=== PATIENT | female | born 1980 | race American Indian/Alaskan Native ===

== ENCOUNTER 2018-07-09 00:20 | Emergency (ER) | payer MEDICAID ==
--- NOTE | 2018-07-09 15:15 | OBDCSUM ---
Datetime: 07/09/2018 14:09 Discharged to, Provider: Home Follow up at, Provider: OBGYN Disch Instr Activity: Normal activity Disch Instr Diet: Regular Discharge Time: 07/09/2018 14:00 Follow up in weeks, Provider: next scheduled appt 07/19 Disch Referrals: None Disch Activity Restrictions: No sexual activity
--- NOTE | 2018-07-09 15:15 | OBHP ---
Datetime: 07/09/2018 14:00 IP Adm Impression: , intrauterine ; No Active Labor; Intact Membranes IP Admit Plan: Discharge home Admit Comment, IP Provider: 38yo 202 IUP 19w (EDC Nov 28) PMD in [facility]...c/ o suprapubic discomfort for a few days. No CTX; no VB PNC: PMD in [facility] - no complications ex UTI for which u.rine culture was taken/ given Cephalexi n which she is taking POBH: x 2 no labor/delivery PMH: denies PSH: abd surgery - tummy tuck NKA PSoH: deneis smoking ETOH drugs A: IUP at 19w cx closed UTI PLAN check UA repeat urine culture Condition explained to pt. Her questions answer alled. No intercourse, rest, PO fluids...follow p with her PMD in 1-2w will call with resutls Abdomen - PN: Normal Back - PN: Normal Thyroid - PN: Normal Neurologic - PN: Normal HEENT - PN: Normal General - PN: Normal Membranes, Provider: Intact Pool Provider: Negative EGA AdmitDate IP: 19.5 IP Chief Complaint: Other Dilatation, Provider: 0 Genitourinary Exam: Normal
== END 2018-07-09 01:15 | disposition home or self-care (01) ==
LOC: H.EROB2 00:20
DX: Z02.89 Encounter for other administrative examinations (principal)

== ENCOUNTER 2018-07-09 13:45 | Emergency (ER) | payer MEDICAID ==
[2018-07-09 14:01] VITALS: BMI 35.0
[2018-07-09 14:44] LABS: SQUAMOUS EPITHIAL 1 /hpf (0-5); URINE BACTERIA RARE (<OCC); URINE BILIRUBIN NEGATIVE (NEGATIVE); URINE BLOOD NEGATIVE (NEGATIVE); URINE CLARITY SLIGHTY-CLOUDY (Clear); URINE COLOR YELLOW (YELLOW); URINE GLUCOSE (UA) NEG (NEGATIVE); URINE LEUKOCYTE ESTERASE NEG Leu/uL (Negative); URINE PROTEIN NEGATIVE (NEGATIVE); URINE UROBILINOGEN 0.2-1.0 mg/dL (0.2-1.0)
== END 2018-07-09 15:50 | disposition home or self-care (01) ==
LOC: H.EROB2 13:45 → H.L&D 13:46 → H.EROB2 15:50
DX: O26.92 Pregnancy related conditions, unspecified, second trimester (principal); R10.2 Pelvic and perineal pain; Z3A.19 19 weeks gestation of pregnancy

== ENCOUNTER 2018-07-22 13:44 | Emergency (ER) | payer MEDICAID ==
[2018-07-22 14:27] VITALS: BMI 34.5
[2018-07-22 15:09] LABS: SQUAMOUS EPITHIAL < 1 /hpf (0-5); URINE BACTERIA RARE (<OCC); URINE BILIRUBIN NEGATIVE (NEGATIVE); URINE BLOOD NEGATIVE (NEGATIVE); URINE CLARITY CLEAR (Clear); URINE COLOR YELLOW (YELLOW); URINE GLUCOSE (UA) NEG (NEGATIVE); URINE LEUKOCYTE ESTERASE NEG Leu/uL (Negative); URINE PROTEIN NEGATIVE (NEGATIVE); URINE UROBILINOGEN 0.2-1.0 mg/dL (0.2-1.0)
--- NOTE | 2018-07-22 15:56 | OBHP ---
Datetime: 07/22/2018 14:39 IP Adm Impression: , intrauterine IP Admit Plan: Observation/Evaluation; Discharge home Admit Comment, IP Provider: Pt is a 38 y/o AMA, F EGA of 21.4 wk JAY 11/28/18 LMP 02/21/18. P atient reports LLQ pain since yesterday, had a UTI 2weeks ago was treated with cephalexin for 7days c ompleted the treatment but started feeling pain come back, pt reports increased frequency, chills yes terday, denies dysuria or hematuria. Also reports mid lumbosacral pressure, constipation. Denies vagi nal bleeding, contractions, or LOF. Reports good movement. Denies fever, headaches, blurry visi on, SOB, chest pain, dizziness, N/V, or diarrhea. Provider: Dr. Diane Gilbert PMHx: Hx of recurrent UTI's Meds: PNV FMHx: Parents DM, HTN, no hx of DM or HTN in Allergies: NKDA SurgHx: Tummy tuck 2007 SOCHx: Denies EthOH, tobacco, or drug use OBGYN: Hx of chlamydia dx in 2009 treated, no TRAVON record AMA, No complications with , Last pap this year reports negative 1 spontanous 2014 2 2012, 2003 Labs: reports wnl, no records with her Assessment Pt is a 38 y/o AMA, F EGA of 21.4 wk here due to LLQ pain increased frequency, likely roun d ligament pain Plan: -Observe in [place] -Monitor VS WNL -Monitor FHR tracing 150's, moderate variability, 10x10 accelerations, no decels -Sent U/A, Urine culture Case reviewed and discussed with Dr. Adriel Hager PGY1 OB Hospitalist Addendum: Pt seen and examined by me. Agree a/ above. 38 yo at 21+4 wks w / LLQ pain that occurred suddenly around 3am when she was getting up from lying on her left side. Pt reports that she feels sore in LLQ. Pt reports feeling abdominal pressure and low back pressure merari t isn't new. No suprapubic or CVA tenderness on exam. Cx is closed/ long and high. No ctxns seen on tocodynamometer. Ua neg except rare bacteria. Urine cx pending. Pt discharged home, likely has round ligament pain. Rec that she try a maternal band for support. (ES ) Extremities - PN: Normal Abdomen - PN: Normal Lungs - PN: Normal Heart - PN: Normal Neurologic - PN: Normal HEENT - PN: Normal General - PN: Normal FHR - Baseline A Provider: 150 Comments, ACOG Physical Exam: GEN: Lying in bed NAD HEENT: NCAT CARD: RRR + S1S2 RESP: CTA, no wheezing, rales or rhonchi GI: Gravid, + BS, nontender to palpation, no rebound, no guarding, no rigidity Back- No CVA tenderness, mid lumbosacral tenderness to palpation EXT: no edema, no calf tenderness Monitor FHR tracing 150's, moderate variability, 10x10, category 1 IP Hx Assessment: The History has been Reviewed and is Current EGA AdmitDate IP: 21.4 Vital Signs Provider: Reviewed; Within Normal Limits IP Chief Complaint: Signs/symptoms UTI NICHD Variability Prov Fetus A: Moderate 6-25bpm NICHD Accel Fetus A IP Provider: 10X10 FHR Category Provider Fetus A: Category I NICHD Decel Fetus A IP Provider: None Genitourinary Exam: Normal
--- NOTE | 2018-07-22 15:59 | OBDCSUM ---
Datetime: 07/22/2018 15:29 Discharged to, Provider: Home Follow up at, Provider: Private Disch Instr Activity: Normal activity Disch Instr Diet: Regular Discharge Time: 07/22/2018 12:45 Follow up in weeks, Provider: Next scheduled appointment Disch Referrals: None Discharge Diagnosis Prov Other: LLQ pain at 1+ weeks
[2018-07-23 00:18] VITALS: BP 98/55; PULSE 88; RESP 30; TEMP 98.2; O2SAT 99
== END 2018-07-22 15:40 | disposition home or self-care (01) ==
LOC: H.EROB2 13:44
DX: O26.92 Pregnancy related conditions, unspecified, second trimester (principal); R10.2 Pelvic and perineal pain; R35.0 Frequency of micturition; Z3A.21 21 weeks gestation of pregnancy

== ENCOUNTER 2018-10-07 15:45 | Emergency (ER) | payer MEDICAID ==
[2018-10-07 16:54] VITALS: BMI 35.2
[2018-10-07 17:50] LABS: BASO % 0.1 % (0.0-2.0); EOS # 0.1 K/uL (0.0-0.7); EOS % 0.7 % (0.0-4.0); HEMOGLOBIN 10.9 g/dL (12.0-16.0); LYMPH # 2.1 K/uL (1.0-4.3); LYMPH % 22.8 % (20.0-40.0); MEAN CELL VOLUME 87.8 fl (81.0-99.0); MEAN CORPUSCULAR HEMOGLOBIN 29.3 pg (27.0-31.0); MEAN CORPUSCULAR HGB CONC 33.4 g/dL (33.0-37.0); MEAN PLATELET VOLUME 9.8 fl (7.2-11.7); MONO # 0.7 K/uL (0.0-0.8); MONO % 8.3 % (0.0-10.0); NEUT # 6.1 K/uL (1.8-7.0); NEUT % 68.1 % (50.0-75.0); NRBC % 0.1 % (0.0-0.0); RBC 3.73 Mil/uL (3.80-5.20); RED CELL DISTRIBUTION WIDTH 15.5 % (11.5-14.5)
--- NOTE | 2018-10-07 18:42 | US ---
Date of service: 10/07/2018 PROCEDURE: OB Pelvic Ultrasound HISTORY: s/p fall COMPARISON: None available. FINDINGS: Transabdominal ultrasonography was performed for evaluation of biophysical profile this patient with status post trauma. Accordingly, only biometry was performed in addition to determine gestational age. Prior last menstrual period is unknown. A single viable intrauterine gestation is identified with average ultrasonic age of 32 weeks 3 days +/-standard deviation. heart rate 139 beats per minute. Estimated weight 1856 g +/-S. D. (4 lb 1 oz) HC/AC ratio falls within the normal range although FL/AC and FL/HC ratios are above the normal range at 24.33 and 22.09 respectively (24.0 and 21.39 are upper limits normal range for those parameters). This status based on the following biometry obtained: Biparietal diameter 8.29 cm corresponds to 33 weeks 2 days. Head circumference 29.24 cm corresponds to 32 weeks 2 days. Abdominal circumference 26.55 cm corresponds to 30 weeks 5 days. Femur length 6.46 cm corresponds to 33 weeks 2 days. Biophysical profile breathing movements 2. movements 2. tones 2. Amniotic fluid 2. KRISHNA 14.6 cm. Total score: 8/8. OTHER FINDINGS: None. IMPRESSION: Single viable intrauterine gestation with average ultrasonic age 32 weeks 3 days and biophysical profile score 8/8 as per above. See biometry details above.
[2018-10-07 23:39] VITALS: BP 117/80; PULSE 118
--- NOTE | 2018-10-08 08:56 | OBHP ---
Datetime: 10/07/2018 16:30 IP Adm Impression: , intrauterine IP Admit Plan: Observation/Evaluation; Discharge home Admit Comment, IP Provider: 38 y/o female at 32.4 wk GA presents to [place] after falling on he r back on the stairs yesterday. She did not seek medical care at that time because she did not have a dequate childcare for her children. She denies trauma to abdomen. She reports lower pelvic and back p ain 7/10 in severity since falling. She endorses movement. Denies VB, VFL. OB: Dr. Steinberg in [place] OBhx: diet controlled GDM, NSVDx2 Pmhx: Recurrent UTIs, treated Chlamydia HomeRx: vitamins Allergies: NKDA SocHx: denies SurgHx: Tummy tuck 2009 Famhx: Mother and father have hx of HTN and DM ROS: all systems reviewed and negative except as per HPI PhysicalExam: Gen: sitting up comfortably in bed, NAD Heart: S1 S2 present, RRR Lungs: normal resp effort, clear to auscultation bilaterally Abd: gravid, normal bowel sounds, soft, non-tender. No signs of trauma Back: no signs of trauma SVE (by Dr. Elizalde) closed/long/high Extremities: no swelling/erythema/tenderness Assessment and Plan 38 y/o female at 32.4 wk IUP s/p fall SVE (by Dr. Elizalde) closed/long/high NST reactive w/ moderate variability [place] shows some irritability, no contractions Will check a BPP/OB U/S CBC and type and screen 6:28PM BPP 8/8, NST reactive w/ moderate variability. Patient advised to take Tylanol 325mg PO Q6H PRN. Patient stable for discharge to home w/ instructions to follow up w/ OB. She has an appointment on Thursday10/10/18. ER precautions given. Case discussed w/ attending, Dr. Fide Billy, pgyi Pelvic Type - PN: Adequate Extremities - PN: Normal Abdomen - PN: Normal Back - PN: Normal Breast - PN: Not Done Lungs - PN: Normal Heart - PN: Normal Thyroid - PN: Not Done Neurologic - PN: Not Done HEENT - PN: Not Done General - PN: Normal FHR - Baseline A Provider: 140 Contraction Comments Provider: none Gestation - Est Wks by US: 32.4 EGA AdmitDate IP: 32.4 Vital Signs Provider: Reviewed; Within Normal Limits IP Chief Complaint: Trauma/Fall NICHD Variability Prov Fetus A: Moderate 6-25bpm NICHD Accel Fetus A IP Provider: 15X15 NICHD Decel Fetus A IP Provider: None Dilatation, Provider: closed Effacement, Provider: long Genitourinary Exam: Not Done DTRs - PN: Not Done
== END 2018-10-07 18:40 | disposition home or self-care (01) ==
LOC: H.EROB2 15:45
DX: O26.93 Pregnancy related conditions, unspecified, third trimester (principal); R10.2 Pelvic and perineal pain; M54.9 Dorsalgia, unspecified; Z3A.32 32 weeks gestation of pregnancy; Z04.3 Encounter for examination and observation following other accident